=== PATIENT | male | born 1985 | race Two or more races ===

== ENCOUNTER 2016-10-28 22:24 | Emergency (ER) | payer SELFPAY ==
[~2016-10-28] VITALS: Ht 165.1 cm; Wt 54.4 kg
[~2016-10-28 22:24] MED LIST: DICY20TA30 PO; METO10TA81 PO; OXYC10TA32 PO; TIZA4CAP3 PO
[2016-10-28 22:56] VITALS: BP 130/77
[2016-10-28] MEDS ORDERED: ACETAMINOPHEN 500 MG TABLET PO ONE (23:00)
--- NOTE | 2016-10-28 23:18 | RAD ---
CT head and cervical spine without contrast Indication: Syncope and fall with head and neck injury. Axial imaging through the brain and cervical spine was performed without contrast. Sagittal and coronal reformations of the cervical spine were also performed. CT brain: The ventricles and sulci are within normal limits. No sulcal effacement, midline shift or hemorrhage is detected. The cisterns are patent. There is mucosal thickening in the maxillary sinuses bilaterally with fluid in the left maxillary sinus. Impression: No acute intracranial process is identified. CT cervical spine: Minimal retrolisthesis C5 on C6 is noted. The overall appearance of the cervical spine appears similar to the CT from 10/21/2016. No fractures are identified. The odontoid is intact. Impression: No acute bony abnormality is detected. Electronically signed by: All Bautista MD (Oct 28, 2016 23:17:50)
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
--- NOTE | 2016-10-29 06:12 | EKG ---
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
== END 2016-10-28 23:41 | disposition home or self-care (01) ==
LOC: MERGE 22:24 → ER 22:24
DX: R55 Syncope and collapse (principal); Z88.5 Allergy status to narcotic agent; Z88.8 Allergy status to other drugs, medicaments and biological substances
CPT/HCPCS: 70450; 72125; 93005; 99284-25

== ENCOUNTER 2017-01-26 01:11 | Emergency (ER) | payer SELFPAY ==
[~2017-01-26] VITALS: Ht 165.1 cm; Wt 59.0 kg
[~2017-01-26 01:11] MED LIST changes: +DICY10CA3 PO; +PROM25TA10 PO
[2017-01-26] MEDS ORDERED: OXYCODONE/APAP 5/325 TABLET. PO ONE (02:00)
[2017-01-26] MEDS ORDERED: OXYMETAZOLINE 0.05% NASAL SPRAY 30ML BOTTLE. NS ONE (02:00)
[2017-01-26] MEDS ORDERED: NEOMY/BACITR/POLYMYXIN OINT PACKET. TP ONE (02:00)
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
[2017-01-26 02:30] VITALS: BP 143/92
== END 2017-01-26 02:35 | disposition home or self-care (01) ==
LOC: ER 01:11
DX: S06.9X9A Unspecified intracranial injury with loss of consciousness of unspecified duration, initial encounter (principal); R04.0 Epistaxis; W22.8XXA Striking against or struck by other objects, initial encounter; Y93.89 Activity, other specified; Y92.89 Other specified places as the place of occurrence of the external cause; Y99.8 Other external cause status
CPT/HCPCS: 70450; 70486; 99284-25

== ENCOUNTER 2017-05-20 15:35 | Inpatient (IN) | payer SELFPAY ==
[~2017-05-20] VITALS: Ht 154.9 cm; Wt 58.3 kg
[~2017-05-20 15:35] MED LIST changes: -OXYC10TA32 PO; +OXYC10TA45 PO
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
--- NOTE | 2017-05-20 16:03 | EKG ---
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
[2017-05-20 16:14] LABS: BASO % 0 % (0-3); EOS % 1 % (0-3); HEMATOCRIT 35.6 % (39.0-53.0); LYMPH # 0.9 x10^3/uL (1.0-4.8); LYMPH % 11 % (24-48); MEAN CORPUSCULAR HEMOGLOBIN 32 pg (25-35); MEAN CORPUSCULAR HGB CONC 34 g/dL (31-37); MEAN CORPUSCULAR VOLUME 95 fL (79-100); MONO % 0 % (0-9); NEUT % 88 % (31-73); PLATELET COUNT 374 x10^3/uL (140-400); RED BLOOD COUNT 3.77 x10^6/uL (4.30-5.70); RED CELL DISTRIBUTION WIDTH 14.5 % (11.5-14.5); WHITE BLOOD COUNT 8.1 x10^3/uL (4.0-11.0)
[2017-05-20] MEDS ORDERED: IV NORMAL SALINE 1000ML BAG 1,000 ML IV SCH (16:15)
[2017-05-20] MEDS: PROMETHAZINE 12.5 MG in IV NORMAL SALINE 50ML 50 ML IV PRN (16:25)
[2017-05-20 16:26] LABS: INR 1.1 (0.8-1.1); PROTHROMBIN TIME PATIENT 13.7 SEC (11.7-14.0)
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
[2017-05-20 16:32] LABS: CALCIUM 9.3 mg/dL (8.5-10.1); CREATININE 1.2 mg/dL (0.7-1.3); GFR 70.6; POTASSIUM 3.5 mmol/L (3.5-5.1)
[2017-05-20 16:38] LABS: ALBUMIN 3.9 g/dL (3.4-5.0); DIRECT BILIRUBIN 0.1 mg/dL (0.0-0.2); TOTAL BILIRUBIN 0.5 mg/dL (0.2-1.0); TOTAL PROTEIN 8.6 g/dL (6.4-8.2)
[2017-05-20] MEDS ORDERED: ALBUTEROL SULFATE 2.5 MG/3 ML NEBU. NEB ONE (16:45)
[2017-05-20 16:46] LABS: CKMB MASS 0.6 ng/mL (0.0-3.6)
[2017-05-20 17:02] LABS: OVALOCYTES OCC; PLT ESTIMATE INCREASED (ADEQUATE); POLYCHROMASIA SLIGHT; SCHISTOCYTES OCC; TARGET CELLS OCC
[2017-05-20] MEDS: fentaNYL PF VIAL 100 MCG/2 ML VIAL IV PRN ×3 (17:18→23:07)
[2017-05-20 17:20] LABS: BILIRUBIN,URINE NEGATIVE (NEG); GLUCOSE,URINE NEGATIVE (NEG); NITRITE,URINE NEGATIVE (NEG); PH,URINE 6.5; PROTEIN,URINE NEGATIVE (NEG-TRACE); UROBILINOGEN,URINE 0.2 mg/dL (0.2 mg/dL)
[2017-05-20 17:21] LABS: BACTERIA,URINE 0 /HPF (0-FEW); RBC,URINE 0 /HPF (0-2); WBC,URINE 0 /HPF (0-4)
[2017-05-20 17:23] LABS: BARBITURATES NEG (NEG); BENZODIAZEPINES NEG (NEG); CANNABINOIDS NEG (NEG); COCAINE NEG (NEG); METHADONE NEG (NEG); OPIATES POS (NEG); PHENCYCLIDINE NEG (NEG)
[2017-05-20] MEDS ORDERED: LIDO:MAALOX:DONNATAL 1:1:1 15 ML SINGLE DOSE SWSW ONE (17:45)
[2017-05-20] MEDS ORDERED: CALCIUM CARBONATE 500 MG TAB.CHEW PO PRN (17:45)
[2017-05-20 19:20] VITALS: BP 104/60
[2017-05-20] MEDS ORDERED: LIDO:MAALOX:DONNATAL 1:1:1 15 ML SINGLE DOSE SWSW PRN (19:45)
[2017-05-20] MEDS: HYDROcodone/APAP 5/325MG 1 TAB TABLET PO PRN (20:15)
[2017-05-20 22:35] VITALS: BP 104/57
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
[2017-05-20] MEDS: diphenhydrAMINE HCL 25 MG CAPSULE PO PRN (23:07)
[2017-05-21 02:51] VITALS: BP 103/64
[2017-05-21] MEDS: fentaNYL PF VIAL 100 MCG/2 ML VIAL IV PRN ×6 (03:03→22:51)
[2017-05-21 05:41] LABS: BASO # 0.1 x10^3/uL (0.0-0.2); BASO % 0 % (0-3); EOS % 0 % (0-3); HEMATOCRIT 32.7 % (39.0-53.0); HEMOGLOBIN 11.1 g/dL (13.0-17.5); LYMPH # 1.7 x10^3/uL (1.0-4.8); LYMPH % 5 % (24-48); MEAN CORPUSCULAR HEMOGLOBIN 31 pg (25-35); MEAN CORPUSCULAR HGB CONC 34 g/dL (31-37); MEAN CORPUSCULAR VOLUME 93 fL (79-100); MONO % 7 % (0-9); NEUT % 88 % (31-73); PLATELET COUNT 363 x10^3/uL (140-400); RED BLOOD COUNT 3.52 x10^6/uL (4.30-5.70); RED CELL DISTRIBUTION WIDTH 14.4 % (11.5-14.5)
[2017-05-21 06:00] LABS: ALBUMIN 3.2 g/dL (3.4-5.0); ALBUMIN/GLOBULIN RATIO 0.8 (1.0-1.7); CALCIUM 8.9 mg/dL (8.5-10.1); CREATININE 1.1 mg/dL (0.7-1.3); GFR 78.1; POTASSIUM 3.9 mmol/L (3.5-5.1); TOTAL BILIRUBIN 0.4 mg/dL (0.2-1.0); TOTAL PROTEIN 7.4 g/dL (6.4-8.2)
[2017-05-21 06:15] LABS: WHITE BLOOD COUNT 32.4 x10^3/uL (4.0-11.0)
[2017-05-21] MEDS: PROMETHAZINE 12.5 MG in IV NORMAL SALINE 50ML 50 ML IV PRN ×2 (06:53→23:09)
[2017-05-21 07:00] VITALS: BP 106/59
[2017-05-21] MEDS: PIPERACILLIN/TAZOBACTAM 3.375 GM in IV NORMAL SALINE 50ML 50 ML IV SCH ×3 (07:23→17:41)
[2017-05-21] MEDS ORDERED: CONTRAST GIVEN MC PRN (08:45)
[2017-05-21] MEDS ORDERED: IOHEXOL 300 MG/ML 75 ML VIAL IV ONE (08:45)
[2017-05-21] MEDS ORDERED: IOHEXOL 240 MG/ML 50ML VIAL. PO ONE (08:45)
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
[2017-05-21 10:27] LABS: PLT ESTIMATE ADEQUATE (ADEQUATE)
[2017-05-21] MEDS ORDERED: DOCUSATE SODIUM 100 MG CAPSULE. PO PRN (10:30)
[2017-05-21] MEDS ORDERED: ACETAMINOPHEN 325 MG TABLET. PO PRN (10:30)
[2017-05-21] MEDS ORDERED: hydrALAZINE 20 MG/ML VIAL. IVP PRN (10:30)
[2017-05-21] MEDS ORDERED: MORPHINE SULFATE 4 MG/ML DISP.SYRIN. IV PRN ×2 (10:45)
[2017-05-21] MEDS: HYDROcodone/APAP 5/325MG 1 TAB TABLET PO PRN (10:55)
[2017-05-21 11:00] VITALS: BP 114/70
[2017-05-21] MEDS: ONDANSETRON PF 4 MG/2 ML VIAL. IV PRN ×2 (12:27→18:21)
[2017-05-21] MEDS: diphenhydrAMINE 50 MG/ML VIAL IVP PRN (12:41)
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
[2017-05-21] MEDS: POTASSIUM CL 20MEQ D5-0.45NACL 1,000 ML IV SCH (14:59)
[2017-05-21] MEDS: FAMOTIDINE 20 MG/2 ML VIAL IVP SCH ×2 (14:59→20:14)
[2017-05-21 15:00] VITALS: BP 113/69
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
[2017-05-21] MEDS: diphenhydrAMINE HCL 25 MG CAPSULE PO PRN (18:21)
[2017-05-21 19:45] VITALS: BP 106/59
[2017-05-21 22:39] VITALS: BP 119/47
[2017-05-22] MEDS: POTASSIUM CL 20MEQ D5-0.45NACL 1,000 ML IV SCH (00:36)
[2017-05-22] MEDS: diphenhydrAMINE 50 MG/ML VIAL IVP PRN ×2 (00:36→06:33)
--- NOTE | 2017-05-22 00:54 | ACF ---
Admission Forms Criteria ABDOMINAL PAIN Clinical Indications for Admission to Inpatient Care ( table mountain/check or initial the applicable condition/criteria): Admission is indicated for ANY ONE of the following (1)(2)(3)(4)(5)(6): [ ]I. Surgery needed that cannot be performed on ambulatory basis [ ]II. Peritoneal signs present (eg, rebound tenderness, rigidity) [ ]III. Evaluation requires patient to not eat or drink for extended period ( eg, more than 24 hours). [X]IV. Inpatient admission required[B] rather than observation care (see Abdominal Pain: Observation Care guideline as appropriate) because of ANY ONE of the following(7)(8)(9): [ ] a) Hemodynamic instability [ ]b) Severe pain requiring acute inpatient management [X]c) Identification of etiology or finding that requires inpatient care (eg, aortic dissection, free air,bowel ischemia)(10) [ ]d) Absent bowel sounds with complete ileus (11) [ ]e) Signs of intestinal obstruction[C] [ ]f) Suspected toxic megacolon [ ]g) Severe electrolyte abnormalities requiring inpatient care [ ]h) High fever or infection requiring inpatient admission as indicated by ANY ONE of the following (12)(13): [ ]i) Appropriate outpatient or observation care antimicrobial treatment unavailable, not effective, or not feasible [ ]ii) Documented bacteremia [ ]iii) Temperature greater than 104.9 degrees F (40.5 degrees C) (oral) [ ]iv) Temperature greater than 103.1 degrees F (39.5 degrees C) ( oral) or less than 96.8 degrees F (36 degrees C) (rectal) that does not respond to all emergency treatment measures [ ]i) IV fluid required rather than oral rehydration to replace significant ongoing (eg, for greater than 24 hours) losses (greater than 3 L/m2 per day)(14)(15) [ ]j) Percutaneous or open drainage (eg, abscess, biliary tract) procedures [ ]k) Parenteral nutrition regimen that must be implemented on inpatient basis [ ]l) Other condition, treatment, or monitoring requiring inpatient admission Extended stay beyond goal length of stay may be needed for (1)(3)(4)(10)(16): [ ]a) Surgery (e.g., colectomy, revascularization procedure) [ ]b) Persistent abdominal pain with suspected intra-abdominal process [ ]c) Diagnosed condition requiring continued stay (e.g., pancreatitis, complicated diverticulitis) The [facility] content [facility] by [facility] has been revised. The portions of the content which have been revised are identified through the use of italic text, and [facility] has neither reviewed nor approved the modified material.All other unmodified content is copyright [facility]. Please see references footnoted in the original [facility] edition 2015 Admission Criteria Met?: Yes MADDI CHENG May 22, 2017 00:54
[2017-05-22] MEDS: fentaNYL PF VIAL 100 MCG/2 ML VIAL IV PRN ×4 (01:36→11:55)
[2017-05-22 03:02] VITALS: BP 119/82
[2017-05-22 05:13] LABS: BASO # 0.1 x10^3/uL (0.0-0.2); BASO % 1 % (0-3); EOS % 2 % (0-3); HEMATOCRIT 34.2 % (39.0-53.0); HEMOGLOBIN 11.7 g/dL (13.0-17.5); LYMPH # 1.7 x10^3/uL (1.0-4.8); LYMPH % 14 % (24-48); MEAN CORPUSCULAR HEMOGLOBIN 32 pg (25-35); MEAN CORPUSCULAR HGB CONC 34 g/dL (31-37); MEAN CORPUSCULAR VOLUME 93 fL (79-100); MONO % 11 % (0-9); NEUT % 73 % (31-73); PLATELET COUNT 392 x10^3/uL (140-400); RED BLOOD COUNT 3.69 x10^6/uL (4.30-5.70); RED CELL DISTRIBUTION WIDTH 15.2 % (11.5-14.5); WHITE BLOOD COUNT 12.2 x10^3/uL (4.0-11.0)
[2017-05-22] MEDS: PIPERACILLIN/TAZOBACTAM 3.375 GM in IV NORMAL SALINE 50ML 50 ML IV SCH ×4 (05:48→12:23)
[2017-05-22 06:17] LABS: CALCIUM 9.4 mg/dL (8.5-10.1); CREATININE 1.2 mg/dL (0.7-1.3); GFR 70.6; POTASSIUM 4.5 mmol/L (3.5-5.1)
[2017-05-22 07:00] VITALS: BP 132/83
[2017-05-22] MEDS: FAMOTIDINE 20 MG/2 ML VIAL IVP SCH (08:25)
[2017-05-22] MEDS: HYDROcodone/APAP 5/325MG 1 TAB TABLET PO PRN ×2 (10:13→15:12)
[2017-05-22 11:00] VITALS: BP 116/75
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
[2017-05-22] MEDS: diphenhydrAMINE HCL 25 MG CAPSULE PO PRN (12:21)
[2017-05-22 15:02] VITALS: BP 138/77
== END 2017-05-22 16:45 | disposition home or self-care (01) | DRG 918 ==
LOC: ER 15:35 → 5 NORTH 17:20
PROVIDERS: ADMIT Internal Medicine; ATTEND Internal Medicine
DX: T52.0X1A Toxic effect of petroleum products, accidental (unintentional), initial encounter (principal); D72.829 Elevated white blood cell count, unspecified; K29.70 Gastritis, unspecified, without bleeding; Y92.89 Other specified places as the place of occurrence of the external cause; Z90.81 Acquired absence of spleen; Z90.89 Acquired absence of other organs; Z88.5 Allergy status to narcotic agent; Z88.8 Allergy status to other drugs, medicaments and biological substances
CPT/HCPCS: 36415; 71020; 74177; 80048; 80053; 80076; 80307; 81001; 82553; 82962; 83690; 85007; 85025; 85610; 85730; 93005; 94250; 94640; 96360; J1200; J2405; J2543; J2550; J3010; J7030; J7613; Q0163; Q9966; Q9967; S0028; 99285-25; G0479

== ENCOUNTER 2018-05-31 01:19 | Emergency (ER) | payer SELFPAY ==
[~2018-05-31] VITALS: Ht 165.1 cm; Wt 58.1 kg
[2018-05-31 01:29] VITALS: BP 159/74
[2018-05-31] MEDS ORDERED: HYDROcodone/APAP 5/325MG 1 TAB TABLET PO ONE (02:00)
[2018-05-31] MEDS ORDERED: NAPR-514 PO (02:04)
--- NOTE | 2018-05-31 02:04 | PHYS DOC ---
Past Medical History Past Medical History: No Pertinent History Additional Past Medical Histor: Left kidney not functioning Past Surgical History: Appendectomy Additional Past Surgical Histo: Splenectomy, L nephrectomy, pancreas removed Alcohol Use: None Drug Use: None Adult General Chief Complaint Chief Complaint: MECHANICAL FALL HPI HPI 33-year-old male with a previous left wrist injury with surgery presents several hours after he fell off a ladder at work. He states he landed on an extended wrist. He complains of severe pain in that left wrist. He denies any other injuries.[] Review of Systems Review of Systems Constitutional: Denies fever or chills [] Eyes: Denies change in visual acuity, redness, or eye pain [] HENT: Denies nasal congestion or sore throat [] Respiratory: Denies cough or shortness of breath [] Cardiovascular: No additional information not addressed in HPI [] GI: Denies abdominal pain, nausea, vomiting, bloody stools or diarrhea [] : Denies dysuria or hematuria [] Musculoskeletal: Per history of present illness[] Integument: Denies rash or skin lesions [] Neurologic: Denies headache, focal weakness or sensory changes [] Endocrine: Denies polyuria or polydipsia [] All other systems were reviewed and found to be within normal limits, except as documented in this note. Current Medications Current Medications Current Medications Medications (Trade) Dose Ordered Sig/Jimmy Start Time Stop Time Status Last Admin Dose Admin Acetaminophen/ Hydrocodone Bitart (Lortab 5/325) 2 tab 1X ONCE 05/31/18 02:00 05/31/18 02:01 Allergies Allergies Allergies Coded Allergies Type Severity Reaction Last Updated Verified morphine Allergy Severe ITCHING 10/29/16 Yes ondansetron Allergy Intermediate ITCHING 05/21/17 Yes Physical Exam Physical Exam Constitutional: Well developed, well nourished, mild distress, non-toxic appearance. [] HENT: Normocephalic, atraumatic, bilateral external ears normal, oropharynx moist, no oral exudates, nose normal. [] Eyes: PERRLA, EOMI, conjunctiva normal, no discharge. [] Neck: Normal range of motion, no tenderness, supple, no stridor. [] Cardiovascular:Heart rate regular rhythm, no murmur [] Lungs & Thorax: Bilateral breath sounds clear to auscultation [] Abdomen: Bowel sounds normal, soft, no tenderness, no masses, no pulsatile masses. [] Skin: Warm, dry, no erythema, no rash. [] Back: No tenderness, no CVA tenderness. [] Extremities: Chronic changes and left wrist no significant swelling. [] Neurologic: Alert and oriented X 3, normal motor function, normal sensory function, no focal deficits noted. [] Psychologic: Affect normal, judgement normal, mood normal. [] EKG EKG [] Radiology/Procedures Radiology/Procedures [] Impressions: Left wrist x-ray shows hardware but no acute findings Course & Med Decision Making Course & Med Decision Making Pertinent Labs and Imaging studies reviewed. (See chart for details) [] Dragon Disclaimer Dragon Disclaimer This electronic medical record was generated, in whole or in part, using a voice recognition dictation system. Departure Departure Impression: Primary Impression: Left wrist sprain Disposition: HOME, SELF-CARE Condition: STABLE Referrals: NO PCP (PCP) Patient Instructions: Wrist Sprain with [facility] Additional Instructions: Return to the emergency department with any new or concerning symptoms Scripts Naproxen (NAPROXEN) 500 Mg Tablet 1 TAB PO BID PRN for PAIN, #30 TAB 1 Refill Prov: MACEY MICHAEL DO 05/31/18 Problem Qualifiers Primary Impression: Left wrist sprain Encounter type: initial encounter Qualified Codes: S63.502A - Unspecified sprain of left wrist, initial encounter MACEY MICHAEL DO May 31, 2018 02:04
--- NOTE | 2018-05-31 02:05 | RAD ---
Left wrist x-rays 3 views HISTORY: Left wrist pain after fall FINDINGS: Chronic ossicle distal ulna. Internal fixation plate and screws of the distal radius and healed posttraumatic deformity and mild benign-type periosteal ossification at the distal radius. No loosening of the hardware. Some of the fixation screws of the radius could breach the articular cortex. 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 No acute fracture. No dislocation. Volar wrist soft tissue swelling. IMPRESSION: No acute osseous injury. Soft tissue swelling of the volar wrist. Electronically signed by: Talha Barrow MD (05/31/2018 2:02 AM) [facility]
== END 2018-05-31 02:30 | disposition home or self-care (01) ==
LOC: ER 01:19
DX: S63.502A Unspecified sprain of left wrist, initial encounter (principal); Z90.5 Acquired absence of kidney; Z90.89 Acquired absence of other organs; Z88.5 Allergy status to narcotic agent; Z88.8 Allergy status to other drugs, medicaments and biological substances; W11.XXXA Fall on and from ladder, initial encounter; Y93.89 Activity, other specified; Y92.89 Other specified places as the place of occurrence of the external cause; Y99.8 Other external cause status
CPT/HCPCS: 29125; 73110; 99284

== ENCOUNTER 2018-11-29 14:22 | Emergency (ER) | payer SELFPAY ==
[~2018-11-29] VITALS: Ht 157.5 cm; Wt 58.1 kg
[~2018-11-29 14:22] MED LIST changes: +NAPR-514 PO; -OXYC10TA45 PO; +OXYC10TA46 PO
[2018-11-29] MEDS ORDERED: HYDROcodone/APAP 5/325MG 1 TAB TABLET PO ONE (14:45)
[2018-11-29 14:47] VITALS: BP 114/78
[2018-11-29] MEDS ORDERED: HYDR-3164 PO (14:54)
--- NOTE | 2018-11-29 14:56 | PHYS DOC ---
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 He reports sxs have been gradually worsening over past 3-4 days with increased swelling/pain and facial swelling. He denies fever, N/V, eye pain/vision change, or difficulty swallowing. He reports he has been having trouble eating solid foods d/t pain. He reports he has multiple cavities and tooth is broke where infection is. Review of Systems Review of Systems Constitutional: Denies fever or chills [] Eyes: Denies change in visual acuity, redness, or eye pain [] HENT: Denies nasal congestion or sore throat [] Respiratory: Denies cough or shortness of breath [] Cardiovascular: No additional information not addressed in HPI [] GI: Denies abdominal pain, nausea, vomiting, bloody stools or diarrhea [] : Denies dysuria or hematuria [] Musculoskeletal: Denies back pain or joint pain [] Integument: Denies rash or skin lesions [] Neurologic: Denies headache, focal weakness or sensory changes [] Endocrine: Denies polyuria or polydipsia [] All other systems were reviewed and found to be within normal limits, except as documented in this note. Current Medications Current Medications Current Medications Medications (Trade) Dose Ordered Sig/Jimmy Start Time Stop Time Status Last Admin Dose Admin Acetaminophen/ Hydrocodone Bitart (Lortab 5/325) 1 tab 1X ONCE 11/29/18 14:45 11/29/18 14:56 DC 11/29/18 14:45 1 TAB Lidocaine HCl (Viscous Lidocaine) 15 ml 1X ONCE 11/29/18 16:15 11/29/18 16:15 DC 11/29/18 15:03 15 ML Multi-Ingredient Mouthwash/Gargle (Magic Mouthwash) 10 ml 1X ONCE 11/29/18 15:15 11/29/18 15:15 DC Allergies Allergies Allergies Coded Allergies Type Severity Reaction Last Updated Verified morphine Allergy Severe ITCHING 10/29/16 Yes ondansetron Allergy Intermediate ITCHING 05/21/17 Yes Physical Exam Physical Exam Constitutional: Well developed, well nourished, mild distress, non-toxic appearance. Clear speech- no difficulty swallowing HENT: Normocephalic, atraumatic, bilateral ears normal, nose normal. Lt cheek swelling without discoloration- no orbital swelling. Lt upper back molar fx- with multiple caries on exam. Swelling/erythema to inner/outer gumline surrounding back molar where tooth is broke- no abscess visible. Upper palate soft. No pharyngeal swelling/erythema- uvula midline Eyes: Pupils equal, conjunctiva normal, no discharge. [] Neck: Normal range of motion, no tenderness/nuchal rigidity, supple, no stridor/gross adenopathy Cardiovascular: Heart rate regular rhythm, no murmur [] Lungs & Thorax: Bilateral breath sounds clear to auscultation. Resp. equal/nonlabored Skin: Warm, dry, no erythema, no rash. [] Extremities: No tenderness, no cyanosis, no clubbing, ROM intact, no edema. [] Neurologic: Alert and oriented X 3, normal motor function, normal sensory function, no focal deficits noted. [] Psychologic: Affect normal, judgement normal, mood normal. [] Current Patient Data Vital Signs EKG EKG [] Radiology/Procedures Radiology/Procedures [] Course & Med Decision Making Course & Med Decision Making Pt was evaluated in the ER for c/o lt upper dental pain/swelling- he was found to have multiple caries. Pt had swelling/erythema and infection lt upper back molar where tooth had been broken- with swelling lt cheek- no orbital/eye involvement. Pt was afebrile. Pt had no abscess on exam. Pt had no difficulty swallowing. Pt was provided with pain medication while in the ER and given list of dental clinics. Pt was advised on need for calling [facility] to schedule appt with dentist. Pt will be given Rx for PCN and Willis. He was advised on OTC ibuprofen PRN. Will provide peridex Rx. Education provided on signs and symptoms to return to ER. Discharge instructions were discussed. Patient to follow-up with primary care physician if symptoms persist or with any concerns. Pt encouraged to increase water intake. Dragon Disclaimer Dragon Disclaimer This electronic medical record was generated, in whole or in part, using a voice recognition dictation system. Departure Departure Impression: Primary Impression: Dental caries Disposition: HOME, SELF-CARE Condition: STABLE Referrals: NO PCP (PCP) Patient Instructions: Dental Caries Additional Instructions: Drink plenty of water. You can do warm salt swishes and spit- to this multiple times daily. If using lidocaine viscous avoid swishing or fluids for 30 minutes following that treatment. It is important to call and schedule a dental appointment as soon as possible and you will need further care and evaluation by a dentist. You can take tylenol and/or ibuprofen for pain control as directed on container- avoid over use of ibuprofen/advil or other NSAids as you only have 1 kidney. Scripts Penicillin V Potassium (PENICILLIN V POTASSIUM) 500 Mg Tablet 1 TAB PO TID, #30 TAB 0 Refills Prov: KAISER JESSICA APRN 11/29/18 Chlorhexidine Gluconate (PERIDEX) 15 Ml Mouthwash 15 ML PO BID for 10 Days, ML 0 Refills Swish and spit Prov: KAISER JESSICA APRN 11/29/18 Hydrocodone/Apap 5-325 (NORCO 5-325 TABLET) 1 Each Tablet 1 TAB PO PRN Q6HRS PRN for PAIN, #10 TAB 0 Refills Avoid alcohol intake or driving while on this medication Prov: KAISER JESSICA APRN 11/29/18 KAISER JESSICA APRN Nov 29, 2018 14:56
[2018-11-29] MEDS ORDERED: CHLO15MO2 PO (14:58)
[2018-11-29] MEDS ORDERED: PENI500T PO (14:58)
[2018-11-29] MEDS ORDERED: LIDO:MAALOX:BENADRYL 1:1:1 180 ML BOTTLE. PO ONE (15:15)
[2018-11-29] MEDS ORDERED: LIDOCAINE 2% VISCOUS 15 ML SOLUTION. SWSW ONE (16:15)
== END 2018-11-29 15:05 | disposition home or self-care (01) ==
LOC: ER 14:22
DX: K02.9 Dental caries, unspecified (principal); Z90.89 Acquired absence of other organs; Z90.5 Acquired absence of kidney; Z90.81 Acquired absence of spleen; Z88.5 Allergy status to narcotic agent; Z88.8 Allergy status to other drugs, medicaments and biological substances
CPT/HCPCS: 99283